=== PATIENT | female | born 1975 | race Caucasian/White ===

== ENCOUNTER 2017-09-27 16:30 | Emergency (ER) | payer OTHER | END 2017-09-27 19:04 | disposition home or self-care (01) | LOC: M ED 16:30 | DX: Z04.1 Encounter for examination and observation following transport accident (principal); S50.01XA Contusion of right elbow, initial encounter; V43.62XA Car passenger injured in collision with other type car in traffic accident, initial encounter; Y92.410 Unspecified street and highway as the place of occurrence of the external cause; Z86.69 Personal history of other diseases of the nervous system and sense organs | CPT/HCPCS: 73080 ==